=== PATIENT | female | born 1995 | race Caucasian/White ===

== ENCOUNTER 2023-10-13 22:05 | Emergency (ER) | payer MEDICAID ==
[~2023-10-13] VITALS: Ht 167.6 cm; Wt 99.5 kg
[2023-10-14 02:31] VITALS: BP 112/73; PULSE 74; RESP 16; TEMP 97.7; O2SAT 99
== END 2023-10-14 02:35 | disposition home or self-care (01) ==
LOC: ER 22:05
DX: M25.531 Pain in right wrist (principal)
CPT/HCPCS: 73110; 99283